=== PATIENT | female | born 1940 | race Hispanic/Latino ===

== ENCOUNTER 2016-11-05 12:52 | Inpatient (IN) | payer OTHER ==
[~2016-11-05] VITALS: Ht 160 cm; Wt 74.8 kg
[~2016-11-05 12:52] MED LIST: FLEXERIL10 MG PO; METFORMIN HCL500 MG PO; TYLENOL #31 TAB PO
--- NOTE | 2016-11-05 13:33 | ED UPPER/LOWER EXTREMITY COMPL ---
History of Present Illness General Chief Complaint: Foot or Ankle Injury Stated Complaint: DIABETIC WITH LEFT FOOT/TOES SWOLLEN Source: family Exam Limitations: language barrier Vital Signs & Intake/Output Vital Signs & Intake/Output Vital Signs Date Time Temp Pulse Resp B/P Pulse O2 O2 Flow FiO2 Ox Delivery Rate 11/06 2223 97.8 80 20 122/52 100 Room Air ED Intake and Output 11/07 0000 11/06 1200 Intake Total 1410 0 Output Total 375 Balance 1035 0 Intake, IV 10 0 Intake, Oral 1400 0 Number 0 Bowel Movements Output, Urine 375 Allergies Coded Allergies: NO KNOWN ALLERGIES (05/08/12) Reconcile Medications Metformin Hydrochloride (Metformin HCl) 500 MG TAB 1 TAB PO BID DIABETES ( Reported) Triage Note: PT TO ER WITH COMPLAINTS OF L FOOT PAIN FOR THE PAST 2 WEEKS. PAIN WITH LIGHT PALPATION, PT IS NIDDM , FS 122 Triage Nurses Notes Reviewed? yes Onset: Gradual Duration: getting worse Timing: recent history Severity: severe Severity Numbers: 10 Pain/Injury Location: Left: 3rd toe. No Modifying Factors: none HPI: Patient is a 76-year-old female with a past medical history of chronic peripheral neuropathy, type 2 diabetes poorly controlled who presents emergency room and which history is limited due to patient being primarily Fijian- speaking only however presents with daughter stating that approximately one month ago patient noted some dried skin to patient's left third toe in which she removed the toe and noticed skin break in which patient has been complaining of a gradual onset of left toe and foot pain and swelling and warmth to the region. Denies any fevers or chills or discharge from the third toe Has not taken any antibiotics (PARVIZ KOVACS) Past History Travel History Traveled to [place] past 21 day No Medical History Any Pertinent Medical History? see below for history Endocrine: diabetes Surgical History Surgical History: non-contributory, N Psychosocial History What is your primary language Fijian Tobacco Use: Never used ETOH Use: denies use Illicit Drug Use: denies illicit drug use Family History Hx Contributory? No (PARVIZ KOVACS) Review of Systems Review of Systems Constitutional: Reports: no symptoms. EENTM: Reports: no symptoms. Respiratory: Reports: no symptoms. Cardiovascular: Reports: no symptoms. Gastrointestinal/Abdominal: Reports: no symptoms. Genitourinary: Reports: no symptoms. Musculoskeletal: Reports: see HPI, joint pain. Skin: Reports: see HPI, lesions. Neurological/Psychological: Reports: no symptoms. Hematologic/Endocrine: Reports: no symptoms. Immunological: Reports: no symptoms. All Other Systems: Reviewed and Negative (PARVIZ KOVACS) Physical Exam Physical Exam General Appearance: no apparent distress, alert, comfortable Neurologic/Tendon: normal sensation, normal motor functions, normal tendon functions, responds to pain, no evidence tendon injury, no pulse deficit Skin: normal color, warm/dry Comments: Well-developed well-nourished no apparent distress. HEENT: Atraumatic, extraocular motion intact Neck: Supple, no lymphadenopathy Back: Nontender Respiratory: No respiratory distress Extremities: Left ankle- nontender normal inspection full active range of motion Left foot-pedal pulses intact see diagram below Neuro: Alert and oriented x3 Psych: Mood affect normal, normal memory normal judgment. Diagram Feet Bottom 1) 1 cm healing ulcer noted with no active discharge moderate surrounding when tenderness noted to phalanx and third metatarsal region No active bleeding, no erythema no warmth (PARVIZ KOVACS) Progress Differential Diagnosis: arterial insufficiency, compartment syndrome, contusion, dislocation, DVT, fracture, gout, septic arthritis, sprain, tendon injury, OSTEOMYELITIS Plan of Care: Orders Procedure Date/time Status Nothing by Mouth 11/07 B Active Change service to 11/06 0738 Active GLYCOSYLATED HGB 11/06 0500 Active Lab Add-on Test 11/06 UNK Active PHYSICIAN CONSULT 11/06 UNK Active Current Medications Sig/Saul Start time Last Medication Dose Stop Time Status Admin Acetaminophen 650 MG Q6P PRN 11/05 1615 AC (Tylenol) Oxycodone HCl 10 MG Q6P PRN 11/05 1615 AC (Roxicodone) Due to past medical history of poorly controlled diabetes and concerns of x-ray findings of suspicion of osteomyelitis that patient is WARRANTING an admission for rule out osteomyelitis however patient's does not have a white blood cell count and fever and inflammatory markers are unremarkable and patient has no erythema or warmth to the region however tenderness is noted and patient has a poorly healing ulcer. Discussed admission with Dr. ACKERMAN who agrees Patient had relief of pain with Percocet administration in the emergency room. (PARVIZ KOVACS) Diagnostic Imaging: Viewed by Me: Radiology Read. Radiology Impression: acute abnormality Initial ED EKG: normal p-waves, normal QRS complex, normal sinus rhythm Comments: PATIENT: HALEY LAWS PRESENT AGE: 76 PATIENT ACCOUNT NO: [id number] : 38 LOCATION: [facility] ORDERING PHYSICIAN: PARVIZ FRIAS SERVICE DATE: 11/05/16 EXAM TYPE: RAD - XRY-FOOT COMPLETE, LEFT EXAMINATION: XR FOOT, LEFT CLINICAL INFORMATION: Left third distal phalanx ulcer. Poorly controlled diabetes mellitus. Evaluate for osteomyelitis. COMPARISON: None TECHNIQUE: AP, lateral, and oblique views of the left foot. FINDINGS: Slight soft tissue swelling seen on the plantar surface of the distal phalanx of the third digit. There appears to be erosive change involving the tuft of the distal phalanx of the third digit, suspicious for osteomyelitis. There is also abnormal osteolysis involving the tuft of the distal phalanx of the first digit, suspicious for osteomyelitis. Diffuse osteopenia. Flattening of the plantar arch. No definite acute fracture or dislocation. Prominent os trigonum. Tiny plantar calcaneal spur and posterior calcaneal spur. Moderate degenerative changes at the fourth and fifth tarsometatarsal joints. IMPRESSION: 1. Suspect osteomyelitis involving the aimee of the third and first distal phalanx. 2. Osteopenia with multilevel degenerative changes. (PARVIZ KOVACS) Departure Departure Disposition: STILL A PATIENT Condition: Stable Clinical Impression Primary Impression: Osteomyelitis of toe of left foot Referrals: OC COLEY APRN (PCP/Family) Departure Forms: Customer Survey General Discharge Information Admission Note Spoke With: MYLES VICENTE MD Documentation of Exam: Documentation of any treatments & extenuating circumstances including Concerns Regarding Discharge (functional status, medication knowledge or non-compliance, living conditions, etc.) that warrant an admission rather than observation: [ DISCUSSED patient with Dr. VICENTE who agrees with general medicine admission for concerns of osteomyelitis and rule out. Patient requires podiatry consultation, MRI and possible bone sample evaluation and due to patient's significant past medical history of diabetes and concerns of critical findings of x-ray suspicion of osteomyelitis outpatient treatment would be medically harmfuL Antibiotics at this time will be withheld until osteomyelitis is identified] (PARVIZ KOVACS) PA/CORNER BLOCK CUTTER Co-Sign Statement Statement: ED Attending supervision documentation- X I saw and evaluated the patient. I have also reviewed all the pertinent lab results and diagnostic results. I agree with the findings and the plan of care as documented in the PA's/CORNER BLOCK CUTTER's documentation. [] I have reviewed the ED Record and agree with the PA's/CORNER BLOCK CUTTER's documentation. [] Additions or exceptions (if any) to the PAs/CORNER BLOCK CUTTER's note and plan are summarized below: [] (MEKA DIAZ,PRISCILA) of the third digit. There appears to be erosive change involving the tuft of the distal phalanx of the third digit, suspicious for osteomyelitis. There is also abnormal osteolysis involving the tuft of the distal phalanx of the first digit, suspicious for osteomyelitis. Diffuse osteopenia. Flattening of the plantar arch. No definite acute fracture or dislocation. Prominent os trigonum. Tiny plantar calcaneal spur and posterior calcaneal spur. Moderate degenerative changes at the fourth and fifth tarsometatarsal joints. IMPRESSION: 1. Suspect osteomyelitis involving the aimee of the third and first distal phalanx. 2. Osteopenia with multilevel degenerative changes. Departure Departure Disposition: STILL A PATIENT Condition: Stable Clinical Impression Primary Impression: Osteomyelitis of toe of left foot Referrals: OC COLEY APRN (PCP/Family) Departure Forms: Customer Survey General Discharge Information Admission Note Spoke With: MYLES VICENTE MD Documentation of Exam: Documentation of any treatments & extenuating circumstances including Concerns Regarding Discharge (functional status, medication knowledge or non-compliance, living conditions, etc.) that warrant an admission rather than observation: [ DISCUSSED patient with Dr. VICENTE who agrees with general medicine admission for concerns of osteomyelitis and rule out. Patient requires podiatry consultation, MRI and possible bone sample evaluation and due to patient's significant past medical history of diabetes and concerns of critical findings of x-ray suspicion of osteomyelitis outpatient treatment would be medically harmfuL Antibiotics at this time will be withheld until osteomyelitis is identified]
[2016-11-05 14:49] LABS: ABSOLUTE BASOPHIL COUNT 0 /CUMM (0.0-0.2); ABSOLUTE EOSINOPHIL COUNT 0.2 /CUMM (0.0-0.7); ABSOLUTE GRANULOCYTE CT 3.6 /CUMM (1.4-6.5); ABSOLUTE LYMPH COUNT 1.1 /CUMM (1.2-3.4); ABSOLUTE MONOCYTE COUNT 0.6 /CUMM (0.10-0.60); BASOPHIL % 0.6 % (0.0-2.0); EOSINOPHIL % 3.7 % (0-5); HEMATOCRIT 30.3 % (37-47); MEAN CORPUSCULAR HGB 28.5 PG (27.0-31.0); MEAN CORPUSCULAR HGB CONC 32.6 G/DL (33.0-37.0); MEAN CORPUSCULAR VOLUME 87.4 FL (81.0-99.0); MEAN PLATELET VOLUME 8.5 FL (7.4-10.4); PLATELET COUNT 255 /CUMM (130-400); RBC DISTRIBUTION WIDTH 13.9 % (11.5-14.5); RED BLOOD CELL CT 3.47 /CUMM (4.20-5.40); WHITE BLOOD CELL COUNT 5.5 /CUMM (4.8-10.8)
--- NOTE | 2016-11-05 15:02 | RADIOLOGY REPORT ---
EXAMINATION: XR FOOT, LEFT CLINICAL INFORMATION: Left third distal phalanx ulcer. Poorly controlled diabetes mellitus. Evaluate for osteomyelitis. COMPARISON: None TECHNIQUE: AP, lateral, and oblique views of the left foot. FINDINGS: Slight soft tissue swelling seen on the plantar surface of the distal phalanx of the third digit. There appears to be erosive change involving the tuft of the distal phalanx of the third digit, suspicious for osteomyelitis. There is also abnormal osteolysis involving the tuft of the distal phalanx of the first digit, suspicious for osteomyelitis. Diffuse osteopenia. Flattening of the plantar arch. No definite acute fracture or dislocation. Prominent os trigonum. Tiny plantar calcaneal spur and posterior calcaneal spur. Moderate degenerative changes at the fourth and fifth tarsometatarsal joints. IMPRESSION: 1. Suspect osteomyelitis involving the aimee of the third and first distal phalanx. 2. Osteopenia with multilevel degenerative changes.
--- NOTE | 2016-11-05 16:37 | History & Physical ---
CHRIS PATEL MD 11/05/16 5699: General Information and HPI MD Statement: I have seen and personally examined HALEY LAWS and documented this H&P. The patient is a 76 year old F who presented with a patient stated chief complaint of [left sided foot pain]. Source of Information: family History of Present Illness: This is a 76-year-old female with a past medical history of diabetes mellitus currently on Augmentin, originally from [place], Mohawk-speaking who view to [facility] in May 2016 there was a family. The patient has been doing fine until recently she started having left sided foot pain which was making her difficult to walk. The patient has been seeing a environmental sustainability manager at [place] at home. The patient denied any fever, chills, shakes. Today she was having more throbbing pain in her left foot, ranked 8 on 10 worsen with standing and movement. She then came to the emergency department for further evaluation. The patient does not understand or speak Wolof and hence most of the history was obtained by the patient's daughter at the bedside. Review of symptoms was negative for any fever chills or shakes. She has extensive bilateral diabetic neuropathy for which she sees a environmental sustainability manager in [place]. Allergies/Medications Allergies: Coded Allergies: NO KNOWN ALLERGIES (05/08/12) Home Med list Metformin Hydrochloride (Metformin HCl) 500 MG TAB 1 TAB PO BID DIABETES ( Reported) Past History Travel History Traveled to [place] past 21 day No Medical History Endocrine: diabetes Surgical History Surgical History: non-contributory, N Past Family/Social History Family History Relations & Conditions if any MOTHER Relation not specified for: *No pertinent family history Psychosocial History Where do you live? Home Who Do You Live With? self Services at Home: None Primary Language: Mohawk ETOH Use: denies use Illicit Drug Use: denies illicit drug use Review of Systems Review of Systems Constitutional: Reports: see HPI. Cardiovascular: Reports: see HPI. Respiratory: Denies: cough, hemoptysis, orthopnea, short of breath. GI: Denies: abdominal pain, bloating, constipation, diarrhea, distention. Genitourinary: Denies: discharge, dysuria, frequency, hematuria. Musculoskeletal: Reports: see HPI (LEFT-SIDED NONHEALING ULCER). Skin: Reports: dryness. Exam & Diagnostic Data Last 24 Hrs of Vital Signs/I&O Vital Signs Date Time Temp Pulse Resp B/P Pulse O2 O2 Flow FiO2 Ox Delivery Rate 11/05 1502 Room Air 11/05 1305 98.3 90 18 158/78 97 Room Air Intake & Output 11/05 1600 11/05 0800 11/05 0000 Intake Total Output Total Balance Patient 167 lb Weight Physical Exam General Appearance Alert, Oriented X3 Skin No Rashes, No Breakdown HEENT Atraumatic, PERRLA Neck Supple, No JVD Lymphatic Axillary nl, Cervical nl Cardiovascular Normal S1, Normal S2, No Murmurs Lungs Normal Air Movement Abdomen Normal Bowel Sounds, Soft, No Tenderness Neurological Normal Gait, Normal Speech, Strength at 5/5 X4 Ext, BILATERAL DECREASED SENSATION IN THE LOWER EXTREMITY Extremities LEFT THIRD TOE NONHEALING ULCER WITH REDNESS IN THE CENTER. Diagnostic Data EKG Results Normal sinus rhythm CXR Results Chest x-ray not performed Foot x-ray 1. Suspect osteomyelitis involving the aimee of the third and first distal phalanx. 2. Osteopenia with multilevel degenerative changes. Assessment/Plan Assessment: This is a 76-year-old female with a past medical history of diabetes mellitus with extensive bilateral diabetic neuropathy who presented with a nonhealing and painful left third toe ulcer. The patient main complaint was pain and not able to put pressure or weight on the foot Vitals at the time of admission showed Temperature of 98.3, pulse rate of 90, respiration rate of 18, blood pressure of 158/78, saturation 97% on room air Labs no WBC count elevated ESR of 61 and normal CRP Foot x-rays: 1. Suspect osteomyelitis involving the aimee of the third and first distal phalanx. 2. Osteopenia with multilevel degenerative changes. Assessment 1. Nonhealing diabetic foot ulcer most likely arterial in origin. 2. Suspicion of osteomyelitis in the absence of systemic symptoms 3. Chronic diabetes mellitus Plan Will admit the patient to general medicine floor Used to obtain Doppler arterial ultrasound of the left leg We will also obtain MRI of the foot in the morning PodiatrY consult has been placed with Dr. Gunter who will evaluate the patient in the morning In the absence of any systemic symptoms antibiotics use is not indicated to maintain the Validity of bone CULTURE Stop more metformin and start the patient on NovoLog sliding scale DVT prophylaxis at all times Pain pathway Patient is full code As Ranked By This Provider Problem List: 1. Osteomyelitis of toe of left foot Core Measures/Miscellaneous Acute Coronary Syndrome ACS Diagnosis: No Cerebrovascular Accident CVA/TIA Diagnosis: No Congestive Heart Failure CHF Diagnosis: No Venous Thromboembolism VTE Risk Factors: Acute medical illness, Age > 40 VTE Prophylaxis Ordered Inpt: Pharm- Lovenox No Mech VTE prophylaxis d/t: No contraindications No VTE Pharm Prophylaxis d/t: No contraindications VTE Diagnosis: No VTE Type: NONE VTE Confirmed by (Test): NONE Severe Sepsis Severe Sepsis Present: No Septic Shock Septic Shock Present: No Miscellaneous Documentation Attending Case Discussed With: MYLES VICENTE MD Primary Care Physician: OC COLEY APRN Patient sees these Specialists none Level of Patient Care: General Medicine MYLES VICENTE MD 11/05/16 1933: Attending MD Review Statement Attending Statement Attending MD Statement: examined this patient, discuss w/resident/PA/FIELD PROJECT MANAGER, agreed w/resident/PA/FIELD PROJECT MANAGER, reviewed EMR data (avail) Attending Assessment/Plan: 76F PMH IDDM with diabetic neuropathy and chronic foot ulcers admitted with 8/10 pain of left foot with left third toe distal ulcer with penetration to bone, sharp edges, no erythema, afebrile. Otherwise asymptomatic. Plan - Admit to general medicine - Check ESR - Send blood cultures - Obtain arterial doppler of left leg to evaluate for PAD - Vascular surgery consult - Podiatry consult - Hold antibiotics for now - Hold on MRI until evaluation by podiatry - Continue home medications - Check HbA1c - DVT PPx
[2016-11-05 18:05] VITALS: BP 118/50
--- NOTE | 2016-11-05 19:36 | Admission Certification ---
Admission Certification Certification Statement - As attending physician, I certify that at the time of - admission, based on clinical presentation, severity of - symptoms, need for further diagnostic testing and - therapeutic interventions, and risk of adverse outcomes - without in-hospital treatment, in my clinical assessment, - this patient requires an acute hospital stay for a minimum - of two nights or longer. I have also considered psychsocial - factors such as support system, advanced age, financial - issues, cognitive issues, and failed out-patient treatments, - past re-admission history, safety of patient, and lack of - compliance as applicable. Specific rationale supporting this admission is: Left toe ulcer suspicious for arterial ulcer with osteomyelitis
[2016-11-05 22:11] VITALS: BP 150/52
[2016-11-06 06:56] VITALS: BP 148/52
--- NOTE | 2016-11-06 07:14 | PN- Housestaff ---
Subjective Review of Systems Constitutional: Reports: see HPI. Objective Last 24 Hrs of Vital Signs/I&O Vital Signs Date Time Temp Pulse Resp B/P Pulse O2 O2 Flow FiO2 Ox Delivery Rate 11/06 0656 97.8 85 20 148/52 99 Room Air 11/05 2211 98.1 71 20 150/52 100 Room Air 11/05 2211 98.1 71 20 150/52 100 Room Air 11/05 1805 97.9 70 20 118/50 99 Room Air 11/05 1636 98.5 63 16 116/58 99 Room Air 11/05 1636 98.5 63 16 116/58 99 Room Air 11/05 1502 Room Air 11/05 1305 98.3 90 18 158/78 97 Room Air Intake & Output 11/06 0800 11/06 0000 11/05 1600 Intake Total 1600 Output Total Balance 1600 Intake, IV 1000 Intake, Oral 600 Patient 167 lb 167 lb Weight Physical Exam General Appearance: No Acute Distress Current Medications: Current Medications Sig/Saul Start time Last Medication Dose Route Stop Time Status Admin Acetaminophen 650 MG Q6P PRN 11/05 1615 AC PO Enoxaparin Sodium 40 MG DAILY 11/06 1000 AC SC Insulin Aspart 0 TIDAC 11/05 1700 AC SC Oxycodone HCl 10 MG Q6P PRN 11/05 1615 AC PO Oxycodone/ 1 TAB Q6P PRN 11/05 1615 AC 11/05 Acetaminophen PO 2104 Oxycodone/ 1 TAB ONCE ONE 11/05 1430 DC 11/05 Acetaminophen PO 11/05 1431 1429 Oxycodone/ 0 .STK-MED ONE 11/05 1426 DC Acetaminophen PO Last 24 Hrs of Lab/Rene Results Last 24 Hrs of Labs/Mics: Laboratory Tests 11/06/16 0645: Sodium Pending, Potassium Pending, Chloride Pending, Carbon Dioxide Pending, Anion Gap Pending, BUN Pending, Creatinine Pending, BUN/Creatinine Ratio Pending , CBC w Diff Pending, WBC Pending, RBC Pending, Hgb Pending, Hct Pending, MCV Pending, MCH Pending, RDW Pending, Plt Count Pending, MPV Pending, PUBS MCHC Pending 11/05/16 1529: C-React Prot High Sens Cancelled, ESR Westergren Cancelled 11/05/16 1430: Anion Gap 12, Estimated GFR 54 L, BUN/Creatinine Ratio 25.0, Glucose 197 H, Calcium 9.9, Total Bilirubin 0.4, AST 23, ALT 20, Alkaline Phosphatase 85, C- Reactive Prot, Quant < 0.5, Total Protein 7.1, Albumin 3.9, Globulin 3.2, Albumin/Globulin Ratio 1.2, CBC w Diff NO MAN DIFF REQ, RBC 3.47 L, MCV 87.4, MCH 28.5, RDW 13.9, MPV 8.5, Gran % 65.0, Lymphocytes % 20.3 L, Monocytes % 10.4 H, Eosinophils % 3.7, Basophils % 0.6, Absolute Granulocytes 3.6, Absolute Lymphocytes 1.1 L, Absolute Monocytes 0.6, Absolute Eosinophils 0.2, Absolute Basophils 0, PUBS MCHC 32.6 L, ESR Westergren 61 H Microbiology 11/05 1445 BLOOD: Blood Culture - RECD 11/05 1430 BLOOD: Blood Culture - RECD Assessment/Plan Assessment: 76-year-old female with past medical history of diabetes mellitus/diabetic nephropathy presents with chronic foot ulcer. 1. Nonhealing foot ulcer in a patient with diabetes mellitus along with a component of peripheral vascular disease: -A scheduled for a bone biopsy tomorrow. Hence no need to obtain an MRI today. As bone biopsy is gold standard. - Discussed with Dr. Gunter. And will be going to [place] tomorrow. - We will keep her nothing by mouth after midnight. - We'll continue to monitor off antibiotics - Atrerial u/s pending. Will hold off vascular evaluation. - if no significant peripheral vascular disease will recommend follow-up with vascular as outpatient 2. Diabetes mellitus: - Hemoglobin A1c ( last A1c not on file) - We'll continue with NovoLog sliding scale DVT ppx with Lovenox Full code
[2016-11-06 08:16] LABS: ABSOLUTE BASOPHIL COUNT 0 /CUMM (0.0-0.2); ABSOLUTE EOSINOPHIL COUNT 0.2 /CUMM (0.0-0.7); ABSOLUTE GRANULOCYTE CT 2.1 /CUMM (1.4-6.5); ABSOLUTE LYMPH COUNT 1.5 /CUMM (1.2-3.4); ABSOLUTE MONOCYTE COUNT 0.7 /CUMM (0.10-0.60); BASOPHIL % 0.4 % (0.0-2.0); EOSINOPHIL % 5.4 % (0-5); GRANULOCYTE % 44.9 % (42.2-75.2); HEMATOCRIT 26.2 % (37-47); MEAN CORPUSCULAR HGB 28.6 PG (27.0-31.0); MEAN CORPUSCULAR HGB CONC 32.8 G/DL (33.0-37.0); MEAN CORPUSCULAR VOLUME 87.4 FL (81.0-99.0); PLATELET COUNT 215 /CUMM (130-400); RBC DISTRIBUTION WIDTH 13.8 % (11.5-14.5); WHITE BLOOD CELL COUNT 4.6 /CUMM (4.8-10.8)
--- NOTE | 2016-11-06 10:00 | PN- Housestaff ---
Subjective Follow-up For: Left third toe osteomyelitis/ chronic non healing ulcer Subjective: Denies pain in the toe. Has remained afebrile since admission. Patient scheduled for an MRI this morning Review of Systems Constitutional: Reports: see HPI. Objective Last 24 Hrs of Vital Signs/I&O Vital Signs Date Time Temp Pulse Resp B/P Pulse O2 O2 Flow FiO2 Ox Delivery Rate 11/06 0656 97.8 85 20 148/52 99 Room Air 11/05 2211 98.1 71 20 150/52 100 Room Air 11/05 2211 98.1 71 20 150/52 100 Room Air 11/05 1805 97.9 70 20 118/50 99 Room Air 11/05 1636 98.5 63 16 116/58 99 Room Air 11/05 1636 98.5 63 16 116/58 99 Room Air 11/05 1502 Room Air Intake & Output 11/06 1600 11/06 0800 11/06 0000 Intake Total 0 1600 Output Total Balance 0 1600 Intake, IV 0 1000 Intake, Oral 0 600 Number 0 Bowel Movements Patient 167 lb Weight Physical Exam General Appearance: Alert, Oriented X3, Cooperative, No Acute Distress Skin: No Rashes Cardiovascular: Regular Rate, Normal S1, Normal S2, No Murmurs Lungs: Clear to Auscultation, Normal Air Movement Abdomen: Normal Bowel Sounds, Soft, No Tenderness Extremities: examination of the left toe shows dried wound,no pain, no tenderness, no discharge Current Medications: Current Medications Sig/Saul Start time Last Medication Dose Route Stop Time Status Admin Acetaminophen 650 MG Q6P PRN 11/05 1615 PO Enoxaparin Sodium 40 MG DAILY 11/06 1000 11/06 [place] 0832 Insulin Aspart 0 TIDAC 11/05 1700 11/06 [place] 0832 Oxycodone HCl 10 MG Q6P PRN 11/05 1615 AC PO Oxycodone/ 1 TAB Q6P PRN 11/05 1615 AC 11/05 Acetaminophen PO 2104 Oxycodone/ 1 TAB ONCE ONE 11/05 1430 DC 11/05 Acetaminophen PO 11/05 1431 1429 Oxycodone/ 0 .STK-MED ONE 11/05 1426 DC Acetaminophen PO Last 24 Hrs of Lab/Rene Results Last 24 Hrs of Labs/Mics: Laboratory Tests 11/06/16 0645: Anion Gap 7, Estimated GFR > 60, BUN/Creatinine Ratio 24.4, CBC w Diff NO MAN DIFF REQ, RBC 3.00 L, MCV 87.4, MCH 28.6, RDW 13.8, MPV 9.0, Gran % 44.9, Lymphocytes % 33.6, Monocytes % 15.7 H, Eosinophils % 5.4 H, Basophils % 0.4, Absolute Granulocytes 2.1, Absolute Lymphocytes 1.5, Absolute Monocytes 0.7 H, Absolute Eosinophils 0.2, Absolute Basophils 0, PUBS MCHC 32.8 L 11/06/16 0500: Hemoglobin A1c Pending 11/05/16 1529: C-React Prot High Sens Cancelled, ESR Westergren Cancelled 11/05/16 1430: Anion Gap 12, Estimated GFR 54 L, BUN/Creatinine Ratio 25.0, Glucose 197 H, Calcium 9.9, Total Bilirubin 0.4, AST 23, ALT 20, Alkaline Phosphatase 85, C- Reactive Prot, Quant < 0.5, Total Protein 7.1, Albumin 3.9, Globulin 3.2, Albumin/Globulin Ratio 1.2, CBC w Diff NO MAN DIFF REQ, RBC 3.47 L, MCV 87.4, MCH 28.5, RDW 13.9, MPV 8.5, Gran % 65.0, Lymphocytes % 20.3 L, Monocytes % 10.4 H, Eosinophils % 3.7, Basophils % 0.6, Absolute Granulocytes 3.6, Absolute Lymphocytes 1.1 L, Absolute Monocytes 0.6, Absolute Eosinophils 0.2, Absolute Basophils 0, PUBS MCHC 32.6 L, ESR Westergren 61 H Microbiology 11/05 1445 BLOOD: Blood Culture - RES 11/05 1430 BLOOD: Blood Culture - RES Assessment/Plan Assessment: 76-year-old female with past medical history of diabetes mellitus/diabetic nephropathy presents with chronic foot ulcer. 1. Nonhealing foot ulcer in a patient with diabetes mellitus along with a component of peripheral vascular disease: -A scheduled for a bone biopsy tomorrow. Hence no need to obtain an MRI today. As bone biopsy is gold standard. - Discussed with Dr. Gunter. And will be going to or tomorrow. - We will keep her nothing by mouth after midnight. - We'll continue to monitor off antibiotics - Atrerial u/s pending. Will hold off vascular evaluation. - if no significant peripheral vascular disease will recommend follow-up with vascular as outpatient 2. Diabetes mellitus: - Hemoglobin A1c ( last A1c not on file) - We'll continue with NovoLog sliding scale DVT ppx with Lovenox Full code Problem List: 1. Finger infection Pain Ratin Pain Location: no pian Pain Goal: Remain pain free Pain Plan: as mentioned Tomorrow's Labs & Rationales: will chck INR
--- NOTE | 2016-11-06 10:57 | PN- Att Addend ---
Attending Addendum Attending Brief Note Patient seen and examined, feels okay. Did complain of some pain in the left foot. She has a nonhealing wound on the left third toe. X-ray findings are suspicious for osteomyelitis. Vital Signs Date Time Temp Pulse Resp B/P Pulse O2 O2 Flow FiO2 Ox Delivery Rate 11/06 0656 97.8 85 20 148/52 99 Room Air 11/05 2211 98.1 71 20 150/52 100 Room Air 11/05 2211 98.1 71 20 150/52 100 Room Air 11/05 1805 97.9 70 20 118/50 99 Room Air 11/05 1636 98.5 63 16 116/58 99 Room Air 11/05 1636 98.5 63 16 116/58 99 Room Air 11/05 1502 Room Air 11/05 1305 98.3 90 18 158/78 97 Room Air on exam; aox3, nad. cv; s1,s2, rrr. resp; clear. abd; soft, nt, bs+ ext; no edema. skin; left third toe has a non healing wound. Laboratory Tests 11/06 11/06 11/05 0645 0500 1529 Chemistry Sodium (137 - 145 mmol/L) 141 Potassium (3.5 - 5.1 mmol/L) 4.6 Chloride (98 - 107 mmol/L) 109 H Carbon Dioxide (22 - 30 mmol/L) 25 Anion Gap (5 - 16) 7 BUN (7 - 17 mg/dL) 22 H Creatinine (0.5 - 1.0 mg/dL) 0.9 Estimated GFR (>60 ml/min) > 60 BUN/Creatinine Ratio (7 - 25 %) 24.4 Hemoglobin A1c Pending C-React Prot High Sens Cancelled Hematology CBC w Diff NO MAN DIFF REQ WBC (4.8 - 10.8 /CUMM) 4.6 L RBC (4.20 - 5.40 /CUMM) 3.00 L Hgb (12.0 - 16.0 G/DL) 8.6 L Hct (37 - 47 %) 26.2 L MCV (81.0 - 99.0 FL) 87.4 MCH (27.0 - 31.0 PG) 28.6 RDW (11.5 - 14.5 %) 13.8 Plt Count (130 - 400 /CUMM) 215 MPV (7.4 - 10.4 FL) 9.0 Gran % (42.2 - 75.2 %) 44.9 Lymphocytes % (20.5 - 51.1 %) 33.6 Monocytes % (1.7 - 9.3 %) 15.7 H Eosinophils % (0 - 5 %) 5.4 H Basophils % (0.0 - 2.0 %) 0.4 Absolute Granulocytes (1.4 - 6.5 /CUMM) 2.1 Absolute Lymphocytes (1.2 - 3.4 /CUMM) 1.5 Absolute Monocytes (0.10 - 0.60 /CUMM) 0.7 H Absolute Eosinophils (0.0 - 0.7 /CUMM) 0.2 Absolute Basophils (0.0 - 0.2 /CUMM) 0 PUBS MCHC (33.0 - 37.0 G/DL) 32.8 L ESR Westergren Cancelled 11/05 1430 Chemistry Sodium (137 - 145 mmol/L) 141 Potassium (3.5 - 5.1 mmol/L) 5.1 Chloride (98 - 107 mmol/L) 106 Carbon Dioxide (22 - 30 mmol/L) 23 Anion Gap (5 - 16) 12 BUN (7 - 17 mg/dL) 25 H Creatinine (0.5 - 1.0 mg/dL) 1.0 Estimated GFR (>60 ml/min) 54 L BUN/Creatinine Ratio (7 - 25 %) 25.0 Glucose (65 - 99 mg/dL) 197 H Calcium (8.4 - 10.2 mg/dL) 9.9 Total Bilirubin (0.2 - 1.3 mg/dL) 0.4 AST (14 - 36 U/L) 23 ALT (9 - 52 U/L) 20 Alkaline Phosphatase (<127 U/L) 85 C-Reactive Prot, Quant (<1.0 mg/dL) < 0.5 Total Protein (6.3 - 8.2 g/dL) 7.1 Albumin (3.5 - 5.0 g/dL) 3.9 Globulin (1.9 - 4.2 gm/dL) 3.2 Albumin/Globulin Ratio (1.1 - 2.2 %) 1.2 Hematology CBC w Diff NO MAN DIFF REQ WBC (4.8 - 10.8 /CUMM) 5.5 RBC (4.20 - 5.40 /CUMM) 3.47 L Hgb (12.0 - 16.0 G/DL) 9.9 L Hct (37 - 47 %) 30.3 L MCV (81.0 - 99.0 FL) 87.4 MCH (27.0 - 31.0 PG) 28.5 RDW (11.5 - 14.5 %) 13.9 Plt Count (130 - 400 /CUMM) 255 MPV (7.4 - 10.4 FL) 8.5 Gran % (42.2 - 75.2 %) 65.0 Lymphocytes % (20.5 - 51.1 %) 20.3 L Monocytes % (1.7 - 9.3 %) 10.4 H Eosinophils % (0 - 5 %) 3.7 Basophils % (0.0 - 2.0 %) 0.6 Absolute Granulocytes (1.4 - 6.5 /CUMM) 3.6 Absolute Lymphocytes (1.2 - 3.4 /CUMM) 1.1 L Absolute Monocytes (0.10 - 0.60 /CUMM) 0.6 Absolute Eosinophils (0.0 - 0.7 /CUMM) 0.2 Absolute Basophils (0.0 - 0.2 /CUMM) 0 PUBS MCHC (33.0 - 37.0 G/DL) 32.6 L ESR Westergren (0 - 20 MM) 61 H A/P; 76-year-old female with past medical history significant for diabetes, 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 Podiatry will be consulted. Patient will be seen by Dr. Gunter. The fact that x-ray is consistent with osteoarthritis and patient will be taken to OR tomorrow by Dr. Gunter, we discussed this with Dr. Gunter and it is okay to hold off on MRI for now. I did a duplex will be obtained. This will be done to determine adeqacy of arterial circulation. If she has significant peripheral arterial disease, vascular surgery will be consulted. No antibiotics have been started yet. Patient is getting insulin sliding scale for diabetes. Metformin was held. DVT prophylaxis: Lovenox.
--- NOTE | 2016-11-06 12:29 | ULTRASOUND REPORT ---
EXAMINATION: NONINVASIVE ASSESSMENT OF THE ARTERIES OF THE LEFT LOWER EXTREMITY INTERPRETING VASCULAR \T\ INTERVENTIONAL RADIOLOGIST: Jay Nicholson MD CLINICAL INFORMATION: Arterial ulcer 3rd phalanx. COMPARISON: None TECHNIQUE: Left lower extremity duplex ultrasound was performed with velocity measurements and waveform analysis in the common femoral arteries, profunda femoris arteries, proximal mid and distal superficial femoral arteries, popliteal arteries and tibial vessels. This study was performed only at rest. FINDINGS: Velocities in cm/sec and phasicity as well as the presence of plaque are reported below. LEFT LEG: Common Femoral: 147 cm/s, triphasic Profunda Femoris: 118 cm/s biphasic Proximal SFA: 115 cm/s biphasic Mid SFA: 111 cm/s biphasic Distal SFA: 102 cm/s biphasic Popliteal: 82 cm/s biphasic Posterior Tibial: 46 cm/s monophasic Anterior Tibial: 39 cm/s monophasic Dorsalis Pedis: 39 cm/s monophasic IMPRESSION: No area of velocity acceleration seen, monophasic waveforms and low velocities tibial vessels may indicate tibial disease.
[2016-11-06 14:30] VITALS: BP 120/70; BP 1220/70
[2016-11-06 22:23] VITALS: BP 122/52
[2016-11-07 08:21] VITALS: BP 120/50
--- NOTE | 2016-11-07 08:43 | PN- Housestaff ---
LAILA DIAZ,ANDREW 11/07/16 0843: Subjective Follow-up For: Left foot nonhealing ulcer Subjective: Patient is currently nothing by mouth for a procedure in a.m. Denies pain, fever, chills. No overnight events reported. Review of Systems Constitutional: Reports: see HPI. Objective Last 24 Hrs of Vital Signs/I&O Vital Signs Date Time Temp Pulse Resp B/P Pulse O2 O2 Flow FiO2 Ox Delivery Rate 11/07 08 97.9 66 20 120/50 99 Room Air 11/06 2223 97.8 80 20 122/52 100 Room Air Intake & Output 11/07 1600 11/07 0800 11/07 0000 Intake Total 350 1010 Output Total Balance 350 1010 Intake, IV 350 10 Intake, Oral 0 1000 Physical Exam General Appearance: Alert, Oriented X3, Cooperative, No Acute Distress Skin: No Rashes Cardiovascular: Regular Rate, Normal S1, Normal S2, No Murmurs Lungs: Clear to Auscultation Abdomen: Normal Bowel Sounds, Soft, No Tenderness Extremities: No Clubbing, No Cyanosis, No Edema, left foot non healing ulcer present. no pain, discharge Current Medications: Current Medications Sig/Saul Start time Last Medication Dose Route Stop Time Status Admin Acetaminophen 650 MG Q6P PRN 11/05 1615 AC PO Dextrose/Sodium 1,000 ML Q20H 11/07 0000 DC 11/06 Chloride IV 2342 Enoxaparin Sodium 40 MG DAILY 11/06 1000 AC 11/06 SC 0832 Insulin Aspart 0 TIDAC 11/07 1700 AC SC Insulin Aspart 0 TIDAC 11/05 1700 DC 11/06 SC 11/06 2300 1715 Insulin Human Regular 0 Q6 11/07 0000 DC 11/07 SC 0032 Oxycodone HCl 10 MG Q6P PRN 11/05 1615 AC PO Oxycodone/ 1 TAB Q6P PRN 11/05 1615 AC 11/06 Acetaminophen PO 2119 Last 24 Hrs of Lab/Rene Results Last 24 Hrs of Labs/Mics: Microbiology 11/07 1206 EXTREMITIE: Gross Specimen Examination - RECD 11/07 120 EXTREMITIE: Gram Stain - RECD Assessment/Plan Assessment: 76-year-old female with past medical history of diabetes mellitus/diabetic nephropathy presents with chronic foot ulcer. 1. Nonhealing foot ulcer in a patient with diabetes mellitus along with a component of peripheral vascular disease: - scheduled for open incision and drainage. Will await biopsy results. - Nothing by mouth since midnight. - We'll continue to monitor off antibiotics -Arterial ultrasound suggested monophasic waveforms and low velocities tibial vessels may indicate tibial disease. -Vascular consult placed, evaluation pending Will await further recommendation. 2. Diabetes mellitus: - Hemoglobin A1c 7.4 - We'll continue with NovoLog sliding scale DVT ppx with Lovenox Full code Problem List: 1. Finger infection Pain Ratin Pain Location: Left third toe Pain Goal: Remain pain free Pain Plan: As mentioned Tomorrow's Labs & Rationales: Will need ADRIENNE DIAZ,FRANCESCO 11/07/16 1523: Attending MD Review Statement Attending Statement Attending MD Statement: examined this patient, discuss w/resident/PA/HEAD MACHINE FEEDER, agreed w/resident/PA/HEAD MACHINE FEEDER, discussed with family, reviewed EMR data (avail), discussed with nursing, reviewed images, amended to note Attending Assessment/Plan: Patient seen and examined, came back from the operating room. She is status post open incision and drainage deep to the fashion with exposure of the extensor and flexor tendon and tendon sheath multiple sites left foot. Partial third ray resection left foot. Excisional debridement. Currently denies any pain. Feelinh hungmika. Patient is admitted with the ostium myelitis. I discussed with Dr. Gunter. He recommended starting the patient on antibiotics and he is planning to take her to operating room again on . Patient has no history of MRSA in the past but has a history of MSSA. For now I will start Unasyn and follow-up on the cultures from the bone debridement. Continue all other current medications. For DVT prophylaxis patient is on Lovenox.
--- NOTE | 2016-11-07 12:14 | Operative Report ---
Operative/Inv Procedure Report Surgery Date: 11/07/16 Name of Procedure: 1 open incision and drainage deep to the fashion with exposure of the extensor and flexor tendon and tendon sheath multiple sites left foot 2 partial third ray resection left foot 3 intraoperative administration of ankle block anesthesia 4 excisional debridement Pre-Operative Diagnosis: 1 open necrotic wound left foot 2 osteomyelitis left foot 3 peripheral arterial disease Post-Operative Diagnosis: The same Estimated Blood Loss: less than 50ml Surgeon/Agricultural Commodities Grader: JANA HAYNES DPM Anesthesia: moderate sedation, block Operative/Procedure Note Note: After obtaining informed consent the patient was brought to the operating room and placed on the operating table in supine position. The patient isn't securely fastened to the operating table utilizing safety belt. After administration of IV sedation, 10 mL of 0.5% Marcaine plain was infiltrated about the patient's left ankle. Left foot and ankle and screw prepped and draped in usual aseptic manner. Digitorectal left foot where a necrotic was identified at the distal central left foot. A 15 blade visualized sharply revised skin margins. Dissection was then carried down deep to the fashion with exposure of the extensor and flexor tendon and tendon sheath multiple sites, both proximally and distally. All necrotic nonviable infected tissue sharply evacuated from the wound bed. Dissection was then carried down to the periosteum level metatarsal phalangeal joint with this was incised reflected. The digit was disarticulated and passed from the operative field. Specimen was sent for both microbiologic and pathologic inspection. Nipple was then irrigated with 3 L normal sterile saline fissure 50,000 units of bacitracin. Following this the foot was redraped and the surgeon's top was changed clean gloves. Any bleeding vessels identified were cauterized or ligated as encountered. Xeroform 4 x 4's Kerlix and Georgi wrap was then placed about the patient's left foot. The patient is noted tolerate both procedure and anesthesia well and the patient was transported from the operating room to recovery by sent stable.
[2016-11-07 16:00] VITALS: BP 130/64
--- NOTE | 2016-11-07 16:07 | Cons- Vascular Surgery ---
General Information and HPI Consulting Request Date of Consult: 11/07/16 Requested By: FRANCESCO DELEON MD Reason for Consult: Left foot wound Source of Information: patient, family Exam Limitations: poor historian History of Present Illness: 76 year-old female with history of left leg/toe wound x 1 month. Per family patient pulled at callous and created a toe wound. She is now S/P I & D by podiatry. No fever or chills. Denies rest pain. Vasc. eval. requested b/c of concern for PAD. Allergies/Medications Allergies: Coded Allergies: NO KNOWN ALLERGIES (05/08/12) Home Med List: Metformin Hydrochloride (Metformin HCl) 500 MG TAB 1 TAB PO BID DIABETES ( Reported) Current Medications: Current Medications Sig/Saul Start time Last Medication Dose Route Stop Time Status Admin Acetaminophen 650 MG Q6P PRN 11/05 1615 AC PO Ampicillin Sodium/ 3,000 MG Q6 11/07 1800 AC Sulbactam Sodium IV Sodium Chloride 100 ML Dextrose/Sodium 1,000 ML Q20H 11/07 0000 DC 11/06 Chloride IV 2342 Enoxaparin Sodium 40 MG DAILY 11/06 1000 AC 11/06 SC 0832 Insulin Aspart 0 TIDAC 11/07 1700 AC SC Insulin Aspart 0 TIDAC 11/05 1700 DC 11/06 SC 11/06 2300 1715 Insulin Human Regular 0 Q6 11/07 0000 DC 11/07 SC 0032 Oxycodone HCl 10 MG Q6P PRN 11/05 1615 AC PO Oxycodone/ 1 TAB Q6P PRN 11/05 1615 AC 11/06 Acetaminophen PO 2119 Past History Medical History Blood Transfusion Hx: No Endocrine: diabetes Surgical History Pertinent Surgical History: none, non-contributory Family History Relations & Conditions If Any: MOTHER Relation not specified for: *No pertinent family history Psychosocial History Where Do You Live? Home Who Do You Live With? self Services at Home: None Primary Language: Cuban Smoking Status: Never Smoked ETOH Use: denies use Illicit Drug Use: denies illicit drug use Review of Systems Review of Systems: Pt. per hx. complains of foot pain. Exam & Diagnostic Data Vital Signs and I&O Vital Signs Date Time Temp Pulse Resp B/P Pulse O2 O2 Flow FiO2 Ox Delivery Rate 11/07 0821 97.9 66 20 120/50 99 Room Air 11/06 2223 97.8 80 20 122/52 100 Room Air Intake & Output 11/07 1600 11/07 0800 11/07 0000 11/06 1600 11/06 0800 11/06 0000 Intake Total 567 686 8109 400 0 1600 Output Total 750 375 Balance -498 639 5751 25 0 1600 Intake, IV 600 350 10 0 0 1000 Intake, Oral 0 0 1000 400 0 600 Number 0 Bowel Movements Output, Urine 750 375 Patient 167 lb Weight Physical Exam: Ext: Bilateral LE perfused, dressing intact on left, R. foot no open ulcers or pain, feet warm bilaterally Physical Exam General Appearance: well developed/nourished, no apparent distress, alert, awake Cardiovascular: edema Extremities: normal inspection Assessment/Plan Assessment/Plan 76 yo with PAD and left toe ulcer s/p I & D. Mild PAD seen on ultrasound. 1.) Continue podiatric care 2.) Will follw with Dr. Mccray - and if wound persists pt. would require angiogram 3.) ABX coverage as needed for wound/osteo. per medical team 4.) Plan d/w patinet/family Consult Acknowledgment - Thank you for your consult request. Attending MD Review Statement Attending Statement Attending MD Statement: examined this patient, discussed with family
[2016-11-07 22:14] VITALS: BP 124/56
[2016-11-08 04:47] VITALS: BP 124/58
[2016-11-08 08:00] VITALS: BP 125/65
[2016-11-08 08:01] LABS: ABSOLUTE BASOPHIL COUNT 0 /CUMM (0.0-0.2); ABSOLUTE EOSINOPHIL COUNT 0.2 /CUMM (0.0-0.7); ABSOLUTE GRANULOCYTE CT 2.2 /CUMM (1.4-6.5); ABSOLUTE LYMPH COUNT 1.2 /CUMM (1.2-3.4); ABSOLUTE MONOCYTE COUNT 0.6 /CUMM (0.10-0.60); BASOPHIL % 0.6 % (0.0-2.0); EOSINOPHIL % 5.5 % (0-5); GRANULOCYTE % 51.3 % (42.2-75.2); HEMATOCRIT 27.1 % (37-47); MEAN CORPUSCULAR HGB 28.6 PG (27.0-31.0); MEAN CORPUSCULAR HGB CONC 32.7 G/DL (33.0-37.0); MEAN CORPUSCULAR VOLUME 87.4 FL (81.0-99.0); MEAN PLATELET VOLUME 9.2 FL (7.4-10.4); PLATELET COUNT 215 /CUMM (130-400); WHITE BLOOD CELL COUNT 4.2 /CUMM (4.8-10.8)
--- NOTE | 2016-11-08 08:15 | PN- Housestaff ---
LAILA DIAZ,ANDREW 11/08/16 0814: Subjective Follow-up For: Left third toe nonhealing ulcer Subjective: Patient feeling comfortable today. Complains of leg pain about 3 x 10 in severity. Has been walking to the restroom without difficulty. Denies chest pain, palpitations, shortness of breath. Review of Systems Constitutional: Reports: see HPI. Objective Last 24 Hrs of Vital Signs/I&O Vital Signs Date Time Temp Pulse Resp B/P Pulse O2 O2 Flow FiO2 Ox Delivery Rate 11/08 0800 97.0 72 16 125/65 98 Room Air 11/08 0447 97.6 66 20 124/58 99 Room Air 11/07 2214 98.2 66 20 124/56 95 Room Air 11/07 1600 98.0 71 18 130/64 99 Room Air Intake & Output 11/08 1600 11/08 0800 11/08 0000 Intake Total 250 240 Output Total 300 675 400 Balance -300 -425 -160 Intake, IV 250 Intake, Oral 240 Output, Urine 300 675 400 Physical Exam General Appearance: Alert, Oriented X3, Cooperative, No Acute Distress Skin: No Rashes Cardiovascular: Regular Rate, Normal S1, Normal S2, No Murmurs Lungs: Clear to Auscultation Abdomen: Normal Bowel Sounds, Soft, No Tenderness Extremities: Left leg covered with dressing. appears clean with out discharge Current Medications: Current Medications Sig/Saul Start time Last Medication Dose Route Stop Time Status Admin Acetaminophen 650 MG Q6P PRN 11/05 1615 AC PO Ampicillin Sodium/ 3,000 MG Q6 11/07 1800 AC 11/08 Sulbactam Sodium IV 0635 Sodium Chloride 100 ML Dextrose/Sodium 1,000 ML Q20H 11/07 0000 DC 11/06 Chloride IV 2342 Enoxaparin Sodium 40 MG DAILY 11/06 1000 AC 11/08 ND 0942 Hydromorphone HCl 2 MG .STK-MED ONE 11/07 1245 DC IM 11/07 1246 Insulin Aspart 0 TIDAC 11/07 1700 AC 11/07 SC 1700 Insulin Human Regular 0 Q6 11/07 0000 DC 11/07 SC 0032 Oxycodone HCl 10 MG Q6P PRN 11/05 1615 AC PO Oxycodone/ 1 TAB Q6P PRN 11/05 1615 AC 11/06 Acetaminophen PO 2119 Last 24 Hrs of Lab/Rene Results Last 24 Hrs of Labs/Mics: Laboratory Tests 11/08/16 0550: Anion Gap 9, Estimated GFR 54 L, BUN/Creatinine Ratio 25.0, Iron 50, TIBC Pending, Ferritin Pending, CBC w Diff NO MAN DIFF REQ, RBC 3.10 L, MCV 87.4, MCH 28.6, RDW 14.0, MPV 9.2, Gran % 51.3, Lymphocytes % 29.0, Monocytes % 13.6 H, Eosinophils % 5.5 H, Basophils % 0.6, Absolute Granulocytes 2.2, Absolute Lymphocytes 1.2, Absolute Monocytes 0.6, Absolute Eosinophils 0.2, Absolute Basophils 0, PUBS MCHC 32.7 L Microbiology 11/07 1205 EXTREMITIE: Gross Specimen Examination - RES STAPH COAGULASE NEGATIVE 11/07 1205 EXTREMITIE: Gram Stain - RES Assessment/Plan Assessment: 76-year-old female with past medical history of diabetes mellitus/diabetic nephropathy presents with chronic foot ulcer s/p partial third ray resection of left foot with bone biopsy sent for pathology on 11/07/2016 1. Nonhealing foot ulcer in a patient with diabetes mellitus along with a component of peripheral vascular disease: - Will await biopsy results. - Stable today. Plan for revision tomorrow. - We'll continue on Unasyn pending pathology reports. - H&H stable postoperatively 2. Peripheral vascular disease -Arterial ultrasound suggested monophasic waveforms and low velocities tibial vessels may indicate tibial disease. - No plan for intervention at this time. Discussed with Dr. Gunter for need for CTangiogram during this admission 3. Diabetes mellitus: - Fingersticks blood sugars over the last 24 hours were 76, 232, 229, 159 - Hemoglobin A1c 7.4 - We'll continue with NovoLog sliding scale 4. Normocytic anemia - We'll check iron studies DVT ppx with Lovenox Full code Problem List: 1. Finger infection Pain Ratin Pain Location: Left foot Pain Goal: Remain pain free Pain Plan: Percocet Tomorrow's Labs & Rationales: Not needed ADRIENNE DIAZ,FRANCESCO 11/08/16 1150: Attending Review Statement Attending Statement Attending MD Statement: examined this patient, discuss w/resident/PA/CYLINDER DYER, agreed w/resident/PA/CYLINDER DYER, reviewed EMR data (avail), discussed with nursing, discussed with case mgmt, amended to note Attending Assessment/Plan: Patient seen and examined, feels well. Offers no complaints. Denies any pain or aches. Vital Signs Date Time Temp Pulse Resp B/P Pulse O2 O2 Flow FiO2 Ox Delivery Rate 11/08 0800 97.0 72 16 125/65 98 Room Air 11/08 0447 97.6 66 20 124/58 99 Room Air 11/07 2214 98.2 66 20 124/56 95 Room Air 11/07 1600 98.0 71 18 130/64 99 Room Air on exam; aox3, nad. cv; s1, s2, rrr. resp: clear b/l abd; soft, nt, bs+ ext; no edema. Laboratory Tests 11/08 0550 Chemistry Sodium (137 - 145 mmol/L) 141 Potassium (3.5 - 5.1 mmol/L) 4.4 Chloride (98 - 107 mmol/L) 108 H Carbon Dioxide (22 - 30 mmol/L) 24 Anion Gap (5 - 16) 9 BUN (7 - 17 mg/dL) 25 H Creatinine (0.5 - 1.0 mg/dL) 1.0 Estimated GFR (>60 ml/min) 54 L BUN/Creatinine Ratio (7 - 25 %) 25.0 Iron (37 - 170 ug/dL) 50 TIBC (265 - 497 ug/dL) 333 Ferritin (11.1 - 264 ng/mL) 12.2 Hematology CBC w Diff NO MAN DIFF REQ WBC (4.8 - 10.8 /CUMM) 4.2 L RBC (4.20 - 5.40 /CUMM) 3.10 L Hgb (12.0 - 16.0 G/DL) 8.9 L Hct (37 - 47 %) 27.1 L MCV (81.0 - 99.0 FL) 87.4 MCH (27.0 - 31.0 PG) 28.6 RDW (11.5 - 14.5 %) 14.0 Plt Count (130 - 400 /CUMM) 215 MPV (7.4 - 10.4 FL) 9.2 Gran % (42.2 - 75.2 %) 51.3 Lymphocytes % (20.5 - 51.1 %) 29.0 Monocytes % (1.7 - 9.3 %) 13.6 H Eosinophils % (0 - 5 %) 5.5 H Basophils % (0.0 - 2.0 %) 0.6 Absolute Granulocytes (1.4 - 6.5 /CUMM) 2.2 Absolute Lymphocytes (1.2 - 3.4 /CUMM) 1.2 Absolute Monocytes (0.10 - 0.60 /CUMM) 0.6 Absolute Eosinophils (0.0 - 0.7 /CUMM) 0.2 Absolute Basophils (0.0 - 0.2 /CUMM) 0 PUBS MCHC (33.0 - 37.0 G/DL) 32.7 L A/P; 76-year-old female with past medical history significant for diabetes, 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 Status post debridement with Dr. Gunter yesterday. Patient was started on Unasyn. We'll follow-up on the cultures from the bone biopsy. Patient will be taken to operating room again by Dr. Gunter on which is tomorrow. Blood sugars in acceptable range. DVT prophylaxis: Lovenox. Please hold morning dose of Lovenox tomorrow morning.
[2016-11-08 15:26] VITALS: BP 120/58
[2016-11-08 22:57] VITALS: BP 138/56
[2016-11-09 05:46] VITALS: BP 130/60
--- NOTE | 2016-11-09 08:12 | PN- Housestaff ---
LAILA DIAZ,ANDREW 11/09/16 0812: Subjective Follow-up For: Left third toe nonhealing ulcer Subjective: Patient appears comfortable today. Currently nothing by mouth fore debridement of the wound. c/o pain about 3 x 10 in severity. Denies chest pain, cough, shortness of breath Review of Systems Constitutional: Reports: see HPI. Objective Last 24 Hrs of Vital Signs/I&O Vital Signs Date Time Temp Pulse Resp B/P Pulse O2 O2 Flow FiO2 Ox Delivery Rate 11/09 0546 97.6 68 20 130/60 100 Room Air 11/08 2257 98.0 58 20 138/56 99 Room Air 11/08 1526 97.6 64 20 120/58 95 11/08 1506 Room Air Intake & Output 11/09 1600 11/09 0800 11/09 0000 Intake Total 800 Output Total 500 Balance -500 800 Intake, IV 100 Intake, Oral 700 Output, Urine 500 Physical Exam General Appearance: Alert, Oriented X3, Cooperative, No Acute Distress Skin: No Rashes Cardiovascular: Regular Rate, Normal S1, Normal S2, No Murmurs Lungs: Clear to Auscultation Abdomen: Normal Bowel Sounds, Soft Neurological: Normal Speech Extremities: No Clubbing, No Cyanosis, No Edema, left feet covered in dressing. Dressing appears clean. No discharge seen Current Medications: Current Medications Sig/Saul Start time Last Medication Dose Route Stop Time Status Admin Acetaminophen 650 MG Q6P PRN 11/05 161 AC PO Amoxicillin/ 875 MG ONCE ONE 11/08 2315 DC 11/09 Clavulanate Potassium PO 11/08 2316 0049 Ampicillin Sodium/ 3,000 MG Q6 11/07 1800 AC 11/09 Sulbactam Sodium IV 0901 Sodium Chloride 100 ML Dextrose/Sodium 1,000 ML Q13H 11/09 0000 AC Chloride IV Enoxaparin Sodium 40 MG DAILY 11/06 1000 DC 11/08 SC 0942 Insulin Aspart 0 TIDAC 11/07 1700 DC 11/08 SC 11/08 2359 1649 Insulin Human Regular 0 Q6 11/09 0000 AC SC Oxycodone HCl 10 MG Q6P PRN 11/05 1615 AC 11/08 PO 1157 Oxycodone/ 1 TAB Q6P PRN 11/05 1615 AC 11/08 Acetaminophen PO 2036 Polyethylene Glycol 17 GM DAILY 11/08 1530 AC 11/08 PO 2022 Assessment/Plan Assessment: 76-year-old female with past medical history of diabetes mellitus/diabetic nephropathy presents with chronic foot ulcer s/p partial third ray resection of left foot with bone biopsy sent for pathology on 11/07/2016. Patient scheduled for re-debridement today by Dr. Mccray. Bone biopsy came back positive for coag negative staph 1. Nonhealing foot ulcer in a patient with diabetes mellitus along with a component of peripheral vascular disease s/p partial third ray resection of left foot. - Bone biopsy results positive for coag negative staph - Will await debridement today. We'll discuss with podiatry about discontinuing antibiotics - Heel touch for weight bearing - We'll continue on Unasyn - H&H stable 2. Peripheral vascular disease -Arterial ultrasound suggested monophasic waveforms and low velocities tibial vessels may indicate tibial disease. - No plan for intervention at this time. Will discuss with Dr. Gunter for need for CTangiogram during this admission 3. Diabetes mellitus: - Fingersticks blood sugars over the last 24 hours were 76, 232, 229, 159 - Hemoglobin A1c 7.4 - We'll continue with NovoLog sliding scale 4. Normocytic anemia - We'll check iron studies 5. Constipation - No BM since admission - We will start miralax DVT ppx with Lovenox. Aysha has been refusing Lovenox. Full code Problem List: 1. Finger infection Pain Ratin Pain Location: left middle toe Pain Goal: Remain pain free Pain Plan: On percocet Tomorrow's Labs & Rationales: Post op labs ADRIENNE DIAZ,FRANCESCO 11/09/16 1212: Attending MD Review Statement Attending Statement Attending MD Statement: examined this patient, discuss w/resident/PA/MIDDLEWARE ADMINISTRATOR, agreed w/resident/PA/MIDDLEWARE ADMINISTRATOR, reviewed EMR data (avail), discussed with nursing, discussed with case mgmt, reviewed images, amended to note Attending Assessment/Plan: Patient seen and examined, feels well. Offers no complaints. Denies any apin, no sob. Patient scheduled for OR today with Dr. Gunter. Vital Signs Date Time Temp Pulse Resp B/P Pulse O2 O2 Flow FiO2 Ox Delivery Rate 11/09 0546 97.6 68 20 130/60 100 Room Air 11/08 2257 98.0 58 20 138/56 99 Room Air 11/08 1526 97.6 64 20 120/58 95 11/08 1506 Room Air on exam; aox3, nad. cv; s1,s2, rrr. resp; clear. abd; soft, nt, bs+ ext; no edema. dressing on left foot. no labs. 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 Status post debridement with Dr. Gunter two days ago. Today scheduled for OR again for further debridement. Continue current antibiotics. Bone cx from two days ago grwoing coag neg staph. I will d/w dr. Gunter about continued need for abx. Pain mx adequate. DVT Px; Lovenox.
[2016-11-09 14:05] VITALS: BP 140/80
--- NOTE | 2016-11-09 21:09 | Patient Discharge Instructions ---
Discharge Instructions General Discharge Information You were seen/treated for: Lower extremity non healing wound Special Instructions: 1. Follow up with your PCP in a week upon discharge 2. Follow up with Dr. Gunter in a week for wound dressing change. Weight bearing heel touch only. please keep the dressing dry. 3. Follow up with Vascular surgery.Please call Dr. Cuenca's office and make a follow up appointment. Diet Recommended Diet: Diabetic Activity Activity Self Limited: Yes (Heel touch only ) Acute Coronary Syndrome Inclusion Criteria At DC or during hospital stay patient has or had the following: ACS DIAGNOSIS No Discharge Core Measures Meds if any: Prescribed or Continued at Discharge Meds if any: NOT Prescribed or Continued at Discharge Congestive Heart Failure Inclusion Criteria At DC or during hospital stay patient has or had the following: CHF DIAGNOSIS No Discharge Core Measures Meds if any: Prescribed or Continued at Discharge Meds if any: NOT Prescribed or Continued at Discharge Cerebrovascular accident Inclusion Criteria At DC or during hospital stay patient has or had the following: CVA/TIA Diagnosis No Discharge Core Measures Meds if any: Prescribed or Continued at Discharge Meds if any: NOT Prescribed or Continued at Discharge Venous thromboembolism Inclusion Criteria VTE Diagnosis No VTE Type NONE VTE Confirmed by (Test) NONE Discharge Core Measures - Per Current guidelines, there needs to be overlap - treatment for the first 5 days of Warfarin therapy. - If discharged on Warfarin prior to 5 days of - overlap therapy, the patient will need to be - assessed for post discharge needs including - *Post discharge parental anticoagulation - *Warfarin and/or parental anticoagulation education - *Follow up date to check INR post discharge At least 5 days overlap therapy as Inpatient No Meds if any: Prescribed or Continued at Discharge Note: Overlap Therapy is Warfarin and Anticoagulant Meds if any: NOT Prescribed or Continued at Discharge
[2016-11-09 22:32] VITALS: BP 120/60
[2016-11-10 06:02] VITALS: BP 120/52
--- NOTE | 2016-11-10 09:15 | PN- Housestaff ---
LAILA DIAZ,ANDREW 11/10/16 0914: Subjective Follow-up For: Nonhealing wound status post partial third-degree resection Subjective: No overnight events reported. Patient comfortably sitting on the bed. Denies pain, chest pain, palpitations, shortness of breath Review of Systems Constitutional: Reports: see HPI. Objective Last 24 Hrs of Vital Signs/I&O Vital Signs Date Time Temp Pulse Resp B/P Pulse O2 O2 Flow FiO2 Ox Delivery Rate 11/10 0602 98.1 69 20 120/52 97 Room Air 11/09 2232 98.1 70 19 120/60 100 Room Air Intake & Output 11/10 1600 11/10 0800 11/10 0000 Intake Total 100 600 Output Total 400 750 Balance -300 -150 Intake, IV 0 0 Intake, Oral 100 600 Number 0 0 Bowel Movements Output, Urine 400 750 Physical Exam General Appearance: Alert, Oriented X3, Cooperative, No Acute Distress Skin: No Rashes Cardiovascular: Regular Rate, Normal S1, Normal S2, No Murmurs Lungs: Clear to Auscultation Abdomen: Normal Bowel Sounds, Soft, No Tenderness Neurological: Normal Speech Extremities: left foot dressing appears dry. Toe movements intact. Sensation intact. Current Medications: Current Medications Sig/Saul Start time Last Medication Dose Route Stop Time Status Admin Acetaminophen 650 MG Q6P PRN 11/05 1615 AC PO Insulin Aspart 0 TIDAC 11/09 1700 AC 11/10 SC 1156 Oxycodone HCl 10 MG Q6P PRN 11/05 1615 AC 11/08 PO 1157 Oxycodone/ 1 TAB Q6P PRN 11/05 1615 AC 11/10 Acetaminophen PO 0724 Polyethylene Glycol 17 GM DAILY 11/08 1530 AC 11/08 PO 2022 Assessment/Plan Assessment: 76-year-old female with past medical history of diabetes mellitus/diabetic nephropathy presents with chronic foot ulcer s/p partial third ray resection of left foot with bone biopsy sent for pathology on 11/07/2016. Patient scheduled for re-debridement yesterday by Dr. Mccray. Bone biopsy came back positive for coag negative staph possibly contamination 1. Nonhealing foot ulcer in a patient with diabetes mellitus along with a component of peripheral vascular disease s/p partial third ray resection of left foot. - Supposed 3 debridement yesterday. Follow-up with Dr. Gunter in 1 week. - Keep the wound dry - Bone biopsy results positive for coag negative staph possibly contaminants -We'll discontinue antibiotics - Heel touch for weight bearing 2. Peripheral vascular disease -Arterial ultrasound suggested monophasic waveforms and low velocities tibial vessels may indicate tibial disease. - No plan for intervention at this time. - She will need outpatient follow-up. Will refer her to follow-up with Dr. Cuenca. 3. Diabetes mellitus: - Fingersticks blood sugars over the last 24 hours were 76, 232, 229, 159 - Hemoglobin A1c 7.4 - We'll continue with NovoLog sliding scale - Will discharge her on her home medication 4. Normocytic anemia - We'll check iron studies 5. Constipation - No BM since admission - We will start miralax DVT ppx with Lovenox. Aysha has been refusing Lovenox. Full code Problem List: 1. Finger infection Pain Ratin Pain Location: Left toe Pain Goal: Remain pain free Pain Plan: Percocet Tomorrow's Labs & Rationales: Patient to be discharged today ADRIENNE DIAZ,[facility] 11/10/16 1153: Attending MD Review Statement Attending Statement Attending MD Statement: examined this patient, discuss w/resident/PA/COMPOUND SPECIALIST, agreed w/resident/PA/COMPOUND SPECIALIST, reviewed EMR data (avail), discussed with nursing, reviewed images, amended to note Attending Assessment/Plan: Patient seen and examined, feels okay. Denies any complaints. She currently denies any pain but would like to get some pain medication for home. As discussed with Dr. Gunter, no antibiotics are indicated at present. Please clarify with Dr. Gunter about the weightbearing status as well as further follow-up plan. Please also clarify if the patient will need special boot. Patient is otherwise medically stable for discharge home today. She will follow -up with her primary care doctor as well as Dr. Gunter as an outpatient.
[2016-11-10] MEDS ORDERED: PERCOCET 5-3251 EACH PO (12:05)
[2016-11-10 14:26] VITALS: BP 120/72
--- NOTE | 2016-11-10 15:51 | Discharge Summary ---
Visit Information Visit Dates Admission Date: 11/05/16 Discharge Date: 11/10/16 Hospital Course Course Attending Physician: FRANCESCO DELEON MD Primary Care Physician: OC COLEY APRN Hospital Course: This is a 76-year-old female with a past medical history of diabetes mellitus currently on Augmentin, originally from [place], Tajik-speaking presents with c/o T left sided foot pain which was making her difficult to walk Vitals and admission: Blood pressure 158/78, respiration 18, pulse rate 90, temperature 98.3, oxygen saturation 97% on room air. Imaging on admission: 1. Suspect osteomyelitis involving the aimee of the third and first distal phalanx. 2. Osteopenia with multilevel degenerative changes. Hospital course: 1. Nonhealing ulcer: Patient was admitted to general medical floor. She was initially watched of antibiotics. Podiatric consult was obtained and recommended bone biopsy. MRI was deferred as bone biopsy is gold standard and would not exchange operator on admission. Patient had bone biopsy on 11/07/2016 along with 1 open incision and drainage deep to the fashion with exposure of the extensor and flexor tendon and tendon sheath multiple sites left foot 2 partial third ray resection left foot 3 intraoperative administration of ankle block anesthesia 4 excisional debridemen As per podiatry recommendation she was started on Unasyn pending cultures. Arterial ultrasound was done which showed evidence of peripheral vascular disease. Vascular consult was obtained who recommended no acute intervention and outpatient follow-up. Bone biopsy was positive for acquired negative staph. cocci which could be contaminents. Antibiotics was stopped. Pt was take to OR for redebridment. Pain was controlled with percoet while she was in the hospital. H/H remined stable. Weight bearing status was Heel touch as per podiatry recommendation. She was given script for a walker and to follow up with Podiatry in 1 week for a dressing change. Will give referral to follow up with Vascular as outpatient. Recommendation to keep the wound dry. 2. DM: She was maintained on NSS. Hemoglobin A1c was 7.4. She was discharged on home medication FUll code status Allergies: Coded Allergies: NO KNOWN ALLERGIES (05/08/12) Disposition Summary Disposition Principal Diagnosis: 1. Non healing ulcer in the setting of PVD and DM 2. DM Additional Diagnosis: Anemia Discharge Disposition: home or self care Discharge Instructions General Discharge Information Code Status: Full Code Patient's Diet: Diabetic diet Patient's Activity: As tolerated Follow-Up Instructions/Appts: 1. Follow up with your PCP in a week upon discharge 2. Follow up with Dr. Gunter in a week for wound dressing change. Weight bearing heel touch only. please keep the dressing dry. 3. Follow up with Vascular surgery.Please call Dr. uCenca's office and make a follow up appointment. Medications at Discharge Discharge Medications: Continue taking these medications: Metformin Hydrochloride (Metformin HCl) 500 MG TAB 1 Tablet ORAL TWICE DAILY Qty = 14 Comments: take 1 tablet by mouth twice a day - SIG Obtained From Rob Start taking the following new medications: Oxycodone HCl/Acetaminophen (Percocet 5-325 MG Tablet) 5 MG-325 MG TABLET 1 Tablet ORAL TWICE DAILY Qty = 15 No Refills Comments: Last Taken:11/10/16 Time:0730 AM Copies To: CLEMENTE COLEY APRN, MD,[facility]
--- NOTE | 2016-11-16 13:57 | Operative Report ---
Operative/Inv Procedure Report Surgery Date: 11/09/16 Name of Procedure: 1 open incision and drainage deep to the D fashion with exposure of the extensor and flexor tendon and tendon sheath multiple sites left foot 2 delayed primary closure of open surgical wound with local random advancement flap 3 revisional partial third ray resection left foot 4 intraoperative administration of ankle block anesthesia 5 excisional debridement Pre-Operative Diagnosis: 1 open necrotic wound left foot 2 osteomyelitis left foot 3 severe peripheral arterial disease Post-Operative Diagnosis: The same Estimated Blood Loss: less than 50ml Surgeon/Director Client: JANA HAYNES DPM Anesthesia: moderate sedation, block Operative/Procedure Note Note: After obtaining informed consent the patient was brought to the operating room placed on the operating table in supine position. The patient isn't securely fastened to the operating table utilizing safety belt. After administration of IV sedation, 10 mL of 0.5% Marcaine plain was infiltrated about the patient's left ankle. The foot and ankle within scrubbed prepped and draped in usual aseptic manner. Digitorectal left foot, where a large full-thickness necrotic was identified. A 15 blade was utilized sharply revised skin margins. It 6 was then carried down deep to the fashion with exposure of the extensor and flexor tendon and tendon sheath multiple sites, both proximally and distally. All necrotic nonviable infected tissue sharply evacuated from the wound bed. Dissection was then carried down to the periosteum overlying the distal third ray which is incised reflected. Sagittal bone saw was utilized performed through and through osteotomy. The distal osseous segment was freed and passed from the operative field. Specimen was sent for both pathologic and Ulysses biologic inspection. Nipple was then irrigated with 3 L normal sterile saline infusion 50,000 units of bacitracin. Following this the foot was redraped and the surgeon's top was changed clean gloves. Any bleeding vessels identified were cauterized or ligated as encountered. A dorsal medial dorsal lateral flap was then developed with undermining mobilization and advancement of the adjacent tissues towards the central aspect of the wound. The deep side flap was held with 3-0 Vicryl and the subtenons tissues reapproximated 4-0 Vicryl. Skin edges were then reapproximated 4-0 nylon. Incision dressed with Xeroform 4 x 4's Kerlix and Georgi wrap. The patient was noted tolerate both procedure and anesthesia well and the patient was transported from the operating room to recovery by sent stable best assess intact to both the dorsal medial dorsal lateral flaps.
== END 2016-11-10 18:30 | DRG 617 ==
LOC: ENRESERVTM → ENRESERVDT → ERH 12:52 → ENPENDDIS 15:52 → 2NA 15:52 → ERHI 15:52 → 2NA 17:41
PROVIDERS: Internal Medicine; Internal Medicine Nephrology; Physician Assistant; ADMIT Internal Medicine
PROC: 0Y6U0Z0 Detachment at Left 3rd Toe, Complete, Open Approach (ICD-10-PCS; principal; 2016-11-07)
PROC: 0HXNXZZ Transfer Left Foot Skin, External Approach (ICD-10-PCS; 2016-11-09)
DX: E11.621 Type 2 diabetes mellitus with foot ulcer (principal); E11.52 Type 2 diabetes mellitus with diabetic peripheral angiopathy with gangrene; G62.9 Polyneuropathy, unspecified; L97.529 Non-pressure chronic ulcer of other part of left foot with unspecified severity; Z79.84 Long term (current) use of oral hypoglycemic drugs; I73.9 Peripheral vascular disease, unspecified
CPT/HCPCS: 2NASP; 87070; 87075; 87184; 36415; 73630-LT; 82436; 87040; 88305; 93005; 93010; J1650; J2001; J7042

== ENCOUNTER 2017-02-26 21:06 | Emergency (ER) | payer OTHER, MEDICARE ==
[~2017-02-26] VITALS: Ht 157.5 cm; Wt 75.8 kg
[~2017-02-26 21:06] MED LIST changes: +PERCOCET 5-3251 EACH PO
[2017-02-26] MEDS ORDERED: LIDODERM1 EACH TOP (23:37)
[2017-02-26] MEDS ORDERED: VALIUM5 M2 PO (23:37)
[2017-02-26] MEDS ORDERED: PERCOCET 5-3251 EACH PO (23:37)
--- NOTE | 2017-02-26 23:41 | ED GENERAL ADULT ---
History of Present Illness General Chief Complaint: Low Back Pain/Injury Stated Complaint: "LOWER BACK PAIN SINCE TODAY" Source: patient Exam Limitations: language barrier Vital Signs & Intake/Output Vital Signs & Intake/Output Vital Signs Date Time Temp Pulse Resp B/P B/P Pulse O2 O2 Flow FiO2 Mean Ox Delivery Rate 02/26 2351 97.6 70 18 152/64 97 Room Air 02/26 2133 97.4 70 18 137/50 97 Room Air ED Intake and Output 02/27 0000 02/26 1200 Intake Total Output Total Balance Patient 167 lb Weight Weight Reported by Patient Measurement Method Allergies Coded Allergies: NO KNOWN ALLERGIES (05/08/12) Reconcile Medications Diazepam (Valium) 5 MG TABLET 1 TAB PO BIDP PRN back pain Lidocaine (Lidoderm) 5 % ADH..PATCH 1 PAT TOP DAILY PRN back pain may wear up to 12 hours Metformin Hydrochloride (Metformin HCl) 500 MG TAB 1 TAB PO BID DIABETES ( Reported) Oxycodone HCl/Acetaminophen (Percocet 5-325 MG Tablet) 5 MG-325 MG TABLET 1 TAB PO BID PRN back pain Oxycodone HCl/Acetaminophen (Percocet 5-325 MG Tablet) 5 MG-325 MG TABLET 1 TAB PO BID foot pain Triage Note: PT IS [place] SPEAKING, FAMILY TRANSLATING PT TO ED C/O EXACERBATION OF CHRONIC MID TO LOW BACK PAIN. HAS BEEN SLEEPING ON AN AIR MATRESS ON THE FLOOR FOR A MONTH Triage Nurses Notes Reviewed? yes HPI: 76 y/o female with h/o chronic back pain and diabetes presenting with acute on chronic back pain that began today. Reports tight left mid back pain that began after sleeping on an air mattress last night. Has been sleeping on an air mattress for the past few weeks. Deneis radiation to the legs. Denies dysuria or urinary urgency/frequency. Denies fevers, IVDU, saddle paresthesias, urinary/ bowel incontinence/retention. (CRISTY CARRILLO,INDER) Past History Travel History Traveled to [place] past 21 day No Medical History Any Pertinent Medical History? see below for history Neurological: NONE EENT: NONE Cardiovascular: NONE Respiratory: NONE Gastrointestinal: NONE Hepatic: NONE Renal: NONE Musculoskeletal: chronic back pain Psychiatric: NONE Endocrine: diabetes Blood Disorders: NONE Cancer(s): NONE DANCE COACH/Reproductive: NONE History of MRSA: No History of VRE: No History of CDIFF: No Surgical History Surgical History: non-contributory, N Psychosocial History Who do you live with Patient/Self Services at Home None What is your primary language Tongan Tobacco Use: Never used Family History Family History, If Any: MOTHER Relation not specified for: *No pertinent family history Hx Contributory? No (INDER MUNIZ PA-C) Review of Systems Review of Systems Constitutional: Denies: chills, fever. Respiratory: Reports: no symptoms. Cardiovascular: Reports: no symptoms. Genitourinary: Denies: dysuria, frequency, hematuria, urgency. Musculoskeletal: Reports: back pain. Denies: neck pain. Neurological/Psychological: Denies: numbness, paresthesia, weakness. (INDER MUNIZ PA-C) Physical Exam Physical Exam General Appearance: well developed/nourished, no apparent distress Head: atraumatic Respiratory: normal breath sounds, lungs clear Cardiovascular: regular rate/rhythm Back: normal inspection, normal range of motion, no vertebral tenderness, No CVAT, but TTP over left mid back with palpable muscle spasms, neg straight leg raise. 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 No CVA/TIA Diagnosis: No Severe Sepsis Present: No Septic Shock Present: No (INDER MUNIZ PA-C) Progress Differential Diagnoses I considered the following diagnoses in my evaluation of the patient: [MSK strain vs pyelonephritis vs cauda equina vs epidural abscess vs malignancy] Plan of Care: Orders Procedure Date/time Status CULTURE,URINE 02/27 2240 Active URINALYSIS 02/27 2240 Complete Laboratory Tests 02/26/170: Urine Color YEL, Urine Clarity CLEAR, Urine pH 7.5, Ur Specific [place] 1.015, Urine Protein NEG, Urine Ketones NEG, Urine Nitrite NEG, Urine Bilirubin NEG, Urine Urobilinogen 0.2, Ur Leukocyte Esterase NEG, Ur Microscopic EXAM NOT REQUIRED, Urine Hemoglobin NEG, Urine Glucose NEG Microbiology 02/26 2310 URINE ROUT: Urine Culture - RES U/A neg for urine infection. Given rx lidoderm patches, valium, and percocet. Educated on back exercises and to use warm compresses. Instructed to f/u with PMD for re-evaluation. (INDER MUNIZ PA-C) Initial ED EKG: none (INDER MUNIZ PA-C) Departure Departure Disposition: HOME OR SELF CARE Condition: Stable Clinical Impression Primary Impression: Back pain Referrals: OC COLEY APRN (PCP/Family) Additional Instructions: Apply 1 lidocaine patch to sore areas as needed once daily. Use 5 mg of Valium twice daily as needed for back pain. Use 5325mg Percocet twice daily as needed for back pain. Do not drive before taking Percocet or Valium. Follow-up with her primary care provider for reevaluation. Return to the ED for any new or worsening symptoms. Departure Forms: Customer Survey General Discharge Information Prescriptions: Current Visit Scripts Diazepam (Valium) 1 TAB PO BIDP PRN back pain #6 TAB Oxycodone HCl/Acetaminophen (Percocet 5-325 MG Tablet) 1 TAB PO BID PRN back pain #6 TAB Lidocaine (Lidoderm) 1 PAT TOP DAILY PRN back pain #15 PAT may wear up to 12 hours (INDER MUNIZ PA-C) PA/BONE WORKER Co-Sign Statement Statement: ED Attending supervision documentation- [] I saw and evaluated the patient. I have also reviewed all the pertinent lab results and diagnostic results. I agree with the findings and the plan of care as documented in the PA's/BONE WORKER's documentation. [X] I have reviewed the ED Record and agree with the PA's/BONE WORKER's documentation. [] Additions or exceptions (if any) to the PAs/BONE WORKER's note and plan are summarized below: [] (FLOR DIAZ,MELANIE Macias) Critical Care Note Critical Care Note Critical Care Time: non-applicable (INDER MUNIZ PA-C)
[2017-02-26 23:51] VITALS: BP 152/64
== END 2017-02-26 23:53 ==
LOC: ERH 21:06
DX: M54.9 Dorsalgia, unspecified (principal)
CPT/HCPCS: 81003; 87086